=== PATIENT | female | born 1965 | race Caucasian/White ===

== ENCOUNTER 2018-07-30 16:11 | Emergency (ER) | payer MEDICAID ==
[~2018-07-30] VITALS: Ht 175.3 cm; Wt 53.0 kg
[~2018-07-30 16:11] MED LIST: ALBU18HF INH; BUDE10.2 INH; CETI10TA32 PO; CHOL500050 PO; CLON0.12; CLON0.5T11 PO; ESTR1PAT65 TD; FLEC50TA25 PO; FLUT1AER INH; GABA300C10 PO; IBUP200C8 PO; METO25TA91 PO; MONT10TA9 PO; OMEP-110 PO; OMEP10CA2; OXYC-307; OXYC-307 PO; OXYC1TAB8 PO; PROM25TA10 PO; TRAM50TA2 PO; TRAZ-136 PO
[2018-07-30 16:56] LABS: BASOPHILS # (AUTO) 0.02 x10^3/uL (0-0.1); BASOPHILS % (AUTO) 0 % (0-1); EOSINOPHILS % (AUTO) 3 % (1-7); LYMPHOCYTES # (AUTO) 1.91 x10^3/uL (1-3.4); LYMPHOCYTES % (AUTO) 28 % (22-44); MD NO; MEAN CORPUSCULAR HGB CONC 33.4 g/dL (32.4-35.8); MEAN CORPUSCULAR VOLUME 92.8 fL (80-100); MEAN PLATELET VOLUME 9.1 fL (7.4-10.4); MONOCYTES # (AUTO) 0.43 x10^3/uL (0.2-0.8); MONOCYTES % (AUTO) 6 % (2-9); NEUTROPHILS # (AUTO) 4.21 x10^3/uL (1.8-6.8); NEUTROPHILS % (AUTO) 62 % (42-75); PLATELET COUNT 273 x10^3/uL (130-400); RED BLOOD COUNT 4.35 x10^6/uL (3.82-5.3); RED CELL DISTRIBUTION WIDTH 15.6 % (9.6-15.2)
[2018-07-30] MEDS ORDERED: HYDROmorphone 2 MG/ML, 1ML IVPush PRN (17:00)
[2018-07-30] MEDS ORDERED: ONDANSETRON 2MG/ML, 2ML IVPush ONE (17:00)
[2018-07-30] MEDS ORDERED: ONDANSETRON 2MG/ML, 2ML ONE (17:08)
[2018-07-30 17:09] LABS: ALBUMIN 3.7 g/dL (3.4-5.0); ANION GAP 9 mmol/L (5-15); CALCIUM 8.7 mg/dL (8.5-10.1); CHLORIDE 107 mmol/L (98-107)
[2018-07-30] MEDS ORDERED: HYDROmorphone 2 MG/ML, 1ML ONE (17:09)
[2018-07-30 17:13] LABS: ALANINE AMINOTRANSFERASE 24 U/L (12-78); ALKALINE PHOSPHATASE 78 U/L (45-117); BILIRUBIN,TOTAL 0.3 mg/dL (0.2-1.0); CREATININE 0.78 mg/dL (0.55-1.02); TOTAL PROTEIN 7.4 g/dL (6.4-8.2)
[2018-07-30 17:38] LABS: CULTURE INDICATED? YES; MICROSCOPIC INDICATED
[2018-07-30] MEDS ORDERED: OMNIPAQUE 350 MG/ML, 100ML BOTTLE ONE (17:45)
[2018-07-30] MEDS ORDERED: HYDROcodone/APAP 5/325 TABLET PO ONE (18:30)
[2018-07-30] MEDS ORDERED: HYDROcodone/APAP 5/325 TABLET ONE (18:38)
[2018-07-30 19:01] VITALS: BP 109/64
== END 2018-07-30 19:13 | disposition home or self-care (01) ==
LOC: ED 18:56
DX: A09 Infectious gastroenteritis and colitis, unspecified (principal); Z90.49 Acquired absence of other specified parts of digestive tract; F41.1 Generalized anxiety disorder
CPT/HCPCS: 36415; 74177; 80053; 81001; 83690; 85025; 87086; 96374; 96375; 99285; J1170; J2405; Q9967

== ENCOUNTER 2020-06-11 11:11 | Emergency (ER) | payer MEDICAID ==
[~2020-06-11] VITALS: Ht 175.3 cm; Wt 52.0 kg
[~2020-06-11 11:11] MED LIST changes: +CLON-364 PO; -CLON0.5T11 PO; +MONT10TA11 PO; -MONT10TA9 PO; +OMEP20TA62 PO; +OXYCODONE; -TRAZ-136 PO; +TRAZ50TA66 PO
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
[2020-06-11] MEDS ORDERED: ZOLP10TA PO (11:29)
[2020-06-11] MEDS ORDERED: TRAM-47 PO (11:29)
[2020-06-11 11:49] LABS: BASOPHILS # (AUTO) 0.04 x10^3/uL (0-0.1); BASOPHILS % (AUTO) 1 % (0-1); EOSINOPHILS # (AUTO) 0.18 x10^3/uL (0-0.4); EOSINOPHILS % (AUTO) 4 % (1-7); LYMPHOCYTES # (AUTO) 1.94 x10^3/uL (1-3.4); LYMPHOCYTES % (AUTO) 40 % (22-44); MD NO; MEAN CORPUSCULAR HEMOGLOBIN 30.4 pg (27.0-34.8); MEAN CORPUSCULAR HGB CONC 32.4 g/dL (32.4-35.8); MEAN PLATELET VOLUME 9.1 fL (7.4-10.4); MONOCYTES # (AUTO) 0.31 x10^3/uL (0.2-0.8); MONOCYTES % (AUTO) 6 % (2-9); NEUTROPHILS # (AUTO) 2.39 x10^3/uL (1.8-6.8); NEUTROPHILS % (AUTO) 49 % (42-75); PLATELET COUNT 261 x10^3/uL (130-400); RED BLOOD COUNT 4.46 x10^6/uL (3.82-5.3); RED CELL DISTRIBUTION WIDTH 14.7 % (9.6-15.2)
--- NOTE | 2020-06-11 11:55 | NUR ---
BREAK RN: PATIENT RESTING COMFORTABLY. NO NEEDS AT THIS TIME.
[2020-06-11 12:01] LABS: AMPHETAMINE SCREEN, URINE Negative (Negative); BARBITURATE SCREEN, URINE Negative (Negative); BENZODIAZEPINE SCREEN, URINE Negative (Negative); CANNABINOID SCREEN, URINE Negative (Negative); OPIATE SCREEN, URINE Positive (Negative)
[2020-06-11 12:01] LABS: ALBUMIN 3.7 g/dL (3.4-5.0); ANION GAP 8 mmol/L (5-15); CALCIUM 8.8 mg/dL (8.5-10.1); CHLORIDE 104 mmol/L (98-107)
[2020-06-11 12:05] LABS: ALANINE AMINOTRANSFERASE 28 U/L (12-78); ALKALINE PHOSPHATASE 84 U/L (45-117); BILIRUBIN,TOTAL 0.5 mg/dL (0.2-1.0); CREATININE 0.96 mg/dL (0.55-1.02); TOTAL PROTEIN 7.5 g/dL (6.4-8.2)
[2020-06-11 12:14] LABS: COCAINE SCREEN, URINE Negative (Negative); METHADONE SCREEN, URINE Negative (Negative)
--- NOTE | 2020-06-11 12:41 | NUR ---
PATIENT PROVIDED ICE WATER WITH OKAY FROM PROVIDER.
--- NOTE | 2020-06-11 14:01 | NUR ---
PATIENT SITTING UP IN GURNEY, SPOUSE AT BEDSIDE, CONNECTED TO VITAL SIGN MACHINE, CALL LIGHT WITHIN REACH.
[2020-06-11 14:47] VITALS: BP 108/67
--- NOTE | 2020-06-11 14:52 | NUR ---
Patient and spouse given discharge instructions and they have confirmed that they understand the instructions, no questions. Patient ambulatory with steady gait to discharge desk.
== END 2020-06-11 14:53 | disposition home or self-care (01) ==
LOC: ED 11:40
DX: R55 Syncope and collapse (principal); T40.4X5A Adverse effect of other synthetic narcotics, initial encounter; J44.9 Chronic obstructive pulmonary disease, unspecified; G89.29 Other chronic pain; Z90.49 Acquired absence of other specified parts of digestive tract; Z90.721 Acquired absence of ovaries, unilateral; Y92.89 Other specified places as the place of occurrence of the external cause
CPT/HCPCS: 36415; 70450; 80053; 80307; 85025; 99284

== ENCOUNTER 2020-11-22 14:46 | Emergency (ER) | payer MEDICAID ==
[~2020-11-22] VITALS: Ht 175.3 cm; Wt 55.6 kg
[~2020-11-22 14:46] MED LIST changes: -MONT10TA11 PO; +MONT10TA17 PO; -OXYC-307; -OXYC-307 PO; +OXYC-380; +OXYC-380 PO; +TRAM-47 PO; +ZOLP10TA PO
[2020-11-22] MEDS ORDERED: ONDANSETRON 2MG/ML, 2ML ONE (15:24)
[2020-11-22] MEDS ORDERED: MORPHINE SULFATE 4 MG/ML, 1ML ONE ×2 (15:25→15:57)
[2020-11-22] MEDS: MORPHINE SULFATE 4 MG/ML, 1ML IVPush PRN ×2 (15:28→16:00)
[2020-11-22] MEDS ORDERED: ONDANSETRON 2MG/ML, 2ML IVPush ONE (15:30)
[2020-11-22] MEDS ORDERED: SODIUM CHLORIDE 0.9% 1,000ML IVBOLUS ONE (15:30)
[2020-11-22 15:33] LABS: MICROSCOPIC AUTO
[2020-11-22 15:36] LABS: BASOPHILS % (AUTO) 1 % (0-1); EOSINOPHILS % (AUTO) 2 % (1-7); LYMPHOCYTES % (AUTO) 28 % (22-44); MEAN CORPUSCULAR HEMOGLOBIN 31.2 pg (27.0-34.8); MEAN CORPUSCULAR HGB CONC 34.1 g/dL (32.4-35.8); MEAN PLATELET VOLUME 9.3 fL (7.4-10.4); MONOCYTES % (AUTO) 7 % (2-9); NEUTROPHILS % (AUTO) 62 % (42-75); PLATELET COUNT 298 x10^3/uL (130-400); RED BLOOD COUNT 4.64 x10^6/uL (3.82-5.3); RED CELL DISTRIBUTION WIDTH 14.4 % (9.6-15.2)
[2020-11-22 15:37] LABS: MD NO
[2020-11-22 15:44] LABS: ALANINE AMINOTRANSFERASE 30 U/L (12-78); ANION GAP 5 mmol/L (5-15); CHLORIDE 105 mmol/L (98-107)
[2020-11-22 15:46] LABS: ALKALINE PHOSPHATASE 114 U/L (45-117); BILIRUBIN,TOTAL 0.3 mg/dL (0.2-1.0); TOTAL PROTEIN 8.2 g/dL (6.4-8.2)
[2020-11-22] MEDS ORDERED: OMNIPAQUE 350 MG/ML, 100ML BOTTLE ONE (16:34)
[2020-11-22] MEDS ORDERED: OXYcodone/APAP 10/325MG TABLET PO ONE (17:00)
[2020-11-22] MEDS ORDERED: OXYcodone/APAP 10/325MG TABLET ONE (17:11)
[2020-11-22 17:13] VITALS: BP 115/74
== END 2020-11-22 17:52 | disposition home or self-care (01) ==
LOC: ED 15:14
DX: G89.29 Other chronic pain (principal); R10.31 Right lower quadrant pain; R11.10 Vomiting, unspecified; F11.23 Opioid dependence with withdrawal; R19.7 Diarrhea, unspecified; J44.9 Chronic obstructive pulmonary disease, unspecified; Z90.721 Acquired absence of ovaries, unilateral; Z87.891 Personal history of nicotine dependence
CPT/HCPCS: 36415; 74177; 80053; 81001; 85025; 87086; 96361; 96374; 96375; 96376; 99285; J2270; J2405; J7030; Q9967